=== PATIENT | male | born 1980 | race Caucasian/White ===

== ENCOUNTER 2021-01-22 01:16 | Emergency (ER) | payer BC ==
[~2021-01-22] VITALS: Ht 175 cm; Wt 156.0 kg
[~2021-01-22 01:16] MED LIST: ALPR0.5T7; CYCL10TA9 PO; FENO135C PO; LOSA100T7; LSNP20T PO; OMEP20CA12; SIMV20TA3; TRAM50TA2 PO
[2021-01-22 01:48] LABS: BASOPHILS # (AUTO) 0.1 10^3/uL (0.0-0.1); BASOPHILS % (AUTO) 1 % (0-10); EOSINOPHILS # (AUTO) 0.1 10^3/uL (0.0-0.3); EOSINOPHILS % (AUTO) 1 % (0-10); HEMATOCRIT 46 % (40-54); LYMPHOCYTES # (AUTO) 2.4 10^3/uL (1.0-4.0); LYMPHOCYTES % (AUTO) 21 % (12-44); MEAN CORPUSCULAR HEMOGLOBIN 30 pg (25-34); MEAN CORPUSCULAR HGB CONC 33 g/dL (32-36); MEAN CORPUSCULAR VOLUME 90 fL (80-99); MEAN PLATELET VOLUME 10.3 fL (9.0-12.2); MONOCYTES # (AUTO) 1.2 10^3/uL (0.0-1.0); MONOCYTES % (AUTO) 11 % (0-12); NEUTROPHILS # (AUTO) 7.5 10^3/uL (1.8-7.8); NEUTROPHILS % (AUTO) 66 % (42-75); PLATELET COUNT 367 10^3/uL (130-400); WHITE BLOOD COUNT 11.4 10^3/uL (4.3-11.0)
[2021-01-22 02:01] LABS: ALBUMIN 4.1 GM/DL (3.2-4.5)
[2021-01-22 02:02] LABS: POTASSIUM 3.9 MMOL/L (3.6-5.0)
[2021-01-22 02:03] LABS: CALCIUM 9.5 MG/DL (8.5-10.1)
[2021-01-22 02:06] LABS: BILIRUBIN,TOTAL 0.3 MG/DL (0.1-1.0)
[2021-01-22 02:07] LABS: CREATININE SERUM 1.04 MG/DL (0.60-1.30); INR 0.9 (0.8-1.4); PROTHROMBIN TIME PATIENT 12.3 SEC (12.2-14.7)
[2021-01-22] MEDS ORDERED: ONDANSETRON 4 MG/2 ML (SDV) Z0FRAN IVP ONE (03:00)
[2021-01-22] MEDS ORDERED: LIDOCAINE 2% VISCOUS 15 ML UDC PO ONE (03:00)
[2021-01-22] MEDS ORDERED: ANTACID SUSP 30 ML UDC (MYLANTA) PO ONE (03:00)
--- NOTE | 2021-01-22 05:01 | ED Chest Pain ---
General Chief Complaint: Chest Pain Stated Complaint: CHEST TIGHTNESS,SOB Nursing Triage Note: PT PRESENTS TO THE ED C/O CHEST PRESSURE AND BILATERAL NUMBNESS TO THE BILATERAL UPPER EXTREMITIES THAT WOKE HIM FROM A SLEEP AROUND MIDNIGHT TONIGHT, PT STATES INITIALLY HE THOUGHT IT WAS A PANIC ATTACK, HAS A HX OF THESE. BUT CAME TO THE ED AFTER HIS ARMS CONTINUED TO TINGLE, SPECIFICALLY HIS HANDS. DENIES NV. VERBALIZES SOB Source: patient Exam Limitations: no limitations History of Present Illness Date Seen by Provider: Jan 22, 2021 Time Seen by Provider: 01:21 Initial Comments This 40-year-old gentleman presents to the emergency room with primary complaint of chest pressure that started abruptly while he was sleeping this morning. He states the time of onset was 00:04. He states he woke with a twitching s ensation in his abdomen and then developed numbness and tingling of his extremities and lightheadedness. He then developed an intense tightness in his chest. He reports the pain has subsided significantly and he has a minor tightness that he rates as 5 out of 10 now. He denies any pain with inspiration. He was lying down flat at the time of the episode. He has a history of GERD. Allergies and Home Medications Allergies Coded Allergies: Penicillins (Verified Allergy, 06/20/13) Patient Home Medication List Home Medication List Reviewed: Yes Alprazolam (Alprazolam) 0.5 Mg Tablet, (Reported) Entered as Reported by: CLYDE TIAN on 12/11/141931 Cyclobenzaprine Hcl (Cyclobenzaprine Hcl) 10 Mg Tablet, 1 EACH PO Q8H PRN for SPASMS Prescribed by: ALBERT BENNETT on 12/11/142100 Losartan Potassium (Losartan Potassium) 100 Mg Tablet, (Reported) Entered as Reported by: CLYDE TIAN on 12/11/141931 Omeprazole (Omeprazole) 20 Mg Capsule., (Reported) Entered as Reported by: CLYDE TIAN on 12/11/141931 Simvastatin (Simvastatin) 20 Mg Tablet, (Reported) Entered as Reported by: CLYDE TIAN on 12/11/141931 Tramadol Hcl (Tramadol Hcl) 50 Mg Tablet, 50 MG PO Q4H PRN for PAIN Prescribed by: ALBERT BENNETT on 12/11/142103 Review of Systems Review of Systems Constitutional: no symptoms reported EENTM: No Symptoms Reported Respiratory: No Symptoms Reported Gastrointestinal: See HPI Genitourinary: No Symptoms Reported Musculoskeletal: no symptoms reported Skin: no symptoms reported Psychiatric/Neurological: No Symptoms Reported Endocrine: No Symptoms Reported Hematologic/Lymphatic: No Symptoms Reported Past Azkdcih-Eggckp-Kwjxim Hx Patient Social History Tobacco Use?: No Smokeless Tobacco Frequency: Heavy User Substance use?: No Alcohol Use?: No Immunizations Up To Date Tetanus Booster (TDap): Unknown Influenza Vaccine Up-to-Date: Yes; Up-to-Date Past Medical History Surgery/Hospitalization HX: HTN HX Surgeries: No Respiratory: No Cardiac: Yes High Cholesterol, Hypertension Neurological: No Reproductive Disorders: No Genitourinary: No Gastrointestinal: Yes Gastroesophageal Reflux Musculoskeletal: No Endocrine: No HEENT: No Cancer: No Did You Recieve Any Treatments: No Psychosocial: No Integumentary: No Physical Exam Vital Signs Vital Signs - First Documented 01/22/21 01:22 Temp 36.8 Pulse 116 Resp 20 B/P (MAP) 160/93 (115) Pulse Ox 97 O2 Delivery Room Air Capillary Refill : Less Than 3 Seconds Height, Weight, BMI Height: 5'9" Weight: 270lbs. 6.0oz. 122.274903jd; 50.00 BMI Method:Stated General Appearance: No Apparent Distress, WD/WN, Obese HEENT: PERRL/EOMI, Normal ENT Inspection Neck: Normal Inspection Respiratory: Lungs Clear, Normal Breath Sounds, No Accessory Muscle Use Cardiovascular: Regular Rate, Rhythm, No Edema, No Murmur, Normal Peripheral Pulses Gastrointestinal: Non Tender, Soft; No Distended Extremity: Normal Inspection, Non Tender, No Calf Tenderness, No Pedal Edema Neurologic/Psychiatric: Alert, Oriented x3, No Motor/Sensory Deficits, Normal Mood/Affect Skin: Normal Color, Warm/Dry Progress/Results/Core Measures Results/Orders Lab Results Laboratory Tests Test 01/22/21 01:37 01/22/21 04:00 Range/Units White Blood Count 11.4 H 4.3-11.0 10^3/uL Red Blood Count 5.07 4.30-5.52 10^6/uL Hemoglobin 15.0 13.3-17.7 g/dL Hematocrit 46 40-54 % Mean Corpuscular Volume 90 80-99 fL Mean Corpuscular Hemoglobin 30 25-34 pg Mean Corpuscular Hemoglobin Concent 33 32-36 g/dL Red Cell Distribution Width 13.9 10.0-14.5 % Platelet Count 367 130-400 10^3/uL Mean Platelet Volume 10.3 9.0-12.2 fL Immature Granulocyte % (Auto) 1 % Neutrophils (%) (Auto) 66 42-75 % Lymphocytes (%) (Auto) 21 12-44 % Monocytes (%) (Auto) 11 0-12 % Eosinophils (%) (Auto) 1 0-10 % Basophils (%) (Auto) 1 0-10 % Neutrophils # (Auto) 7.5 1.8-7.8 10^3/uL Lymphocytes # (Auto) 2.4 1.0-4.0 10^3/uL Monocytes # (Auto) 1.2 H 0.0-1.0 10^3/uL Eosinophils # (Auto) 0.1 0.0-0.3 10^3/uL Basophils # (Auto) 0.1 0.0-0.1 10^3/uL Immature Granulocyte # (Auto) 0.1 0.0-0.1 10^3/uL Prothrombin Time 12.3 12.2-14.7 SEC INR Comment 0.9 0.8-1.4 Activated Partial Thromboplast Time 31 24-35 SEC Sodium Level 141 135-145 MMOL/L Potassium Level 3.9 3.6-5.0 MMOL/L Chloride Level 108 H 98-107 MMOL/L Carbon Dioxide Level 22 21-32 MMOL/L Anion Gap 11 5-14 MMOL/L Blood Urea Nitrogen 25 H 7-18 MG/DL Creatinine 1.04 0.60-1.30 MG/DL Estimat Glomerular Filtration Rate 80 BUN/Creatinine Ratio 24 Glucose Level 116 H 70-105 MG/DL Calcium Level 9.5 8.5-10.1 MG/DL Corrected Calcium 9.4 8.5-10.1 MG/DL Magnesium Level 2.0 1.6-2.4 MG/DL Total Bilirubin 0.3 0.1-1.0 MG/DL Aspartate Amino Transf (AST/SGOT) 24 5-34 U/L Alanine Aminotransferase (ALT/SGPT) 54 0-55 U/L Alkaline Phosphatase 109 40-136 U/L Myoglobin 44.8 10.0-92.0 NG/ML Troponin I < 0.028 < 0.028 <0.028 NG/ML C-Reactive Protein High Sensitivity 0.85 H 0.00-0.50 MG/DL Total Protein 7.0 6.4-8.2 GM/DL Albumin 4.1 3.2-4.5 GM/DL My Orders Orders - CHLOE BURGOS MD Cbc With Automated Diff (01/22/21:21) Magnesium (01/22/21:21) Chest 1 View, Ap/Pa Only (01/22/21 01:21) Ekg Tracing (01/22/21:21) Comprehensive Metabolic Panel (01/22/21:21) Myoglobin Serum (01/22/21:21) Protime With Inr (01/22/21:) Partial Thromboplastin Time (01/22/21:21) O2 (01/22/21:21) Monitor-Rhythm Ecg Trace Only (01/22/21:21) Ed Iv/Invasive Line Start (01/22/21:21) Troponin I (01/22/21 01:21) Hs C Reactive Protein (01/22/21 01:21) Ondansetron Injection (Zofran Injectio (01/22/21 03:00) Lidocaine 2% Viscous 15 Ml (Xylocaine Vi (01/22/21 03:00) Antacid Suspension (Mylanta Suspension (01/22/21 03:00) Troponin I (01/22/21 04:20) Medications Given in ED Current Medications Medications Dose Ordered Sig/Sb Route Start Time Stop Time Status Last Admin Dose Admin Al Hydrox/Mg Hydrox/Simethicone 30 ml ONCE ONCE PO 01/22/21 03:00 01/22/21 03:01 DC 01/22/21 03:27 30 ML Lidocaine HCl 15 ml ONCE ONCE PO 01/22/21 03:00 01/22/21 03:01 DC 01/22/21 03:27 15 ML Ondansetron HCl 4 mg ONCE ONCE IVP 01/22/21 03:00 01/22/21 03:01 DC 01/22/21 03:04 4 MG Vital Signs/I&O 01/22/21 01/22/21 01:22 05:18 Temp 36.8 36.8 Pulse 116 94 Resp 20 20 B/P (MAP) 160/93 (115) 170/94 Pulse Ox 97 96 O2 Delivery Room Air Room Air Blood Pressure Mean: 115 Initial ECG Impression Date: Jan 22, 2021 Initial ECG Impression Time: 01:26 Initial ECG Rate: 106 Initial ECG Rhythm: S.Tach Comment Sinus tachycardia with no ST elevation or depression. No abnormal intervals or axis deviation. Diagnostic Imaging Diagonstic Imaging: Xray Plain Films/CT/US/NM/MRI: chest Comments Chest x-ray viewed by me. Report not yet available. No acute abnormalities appreciated. Departure Impression Primary Impression: Atypical chest pain Disposition: HOME, SELF-CARE Condition: Improved Departure-Patient Inst. Decision time for Depature: 04:59 Referrals: IRENE MCNAMARA (PCP/Family) Primary Care Physician Patient Instructions: Chest Pain, Adult ED, Acid Reflux and GERD in Adults (DC) Add. Discharge Instructions: Follow-up with your primary care provider soon as possible. Please call later today to schedule an appointment. Your chest pain may have been caused by acid reflux. I recommend that you take an antacid medication such as Pepcid (famotidine) or omeprazole (Prilosec) 20 mg twice daily for the next month. These antacid medications can be purchased [id number]. Also avoid the following: Eating large meals, eating close to bedtime, caffeine, carbonation, chocolate, citrus fruits and juices, tomato products, mints, alcohol, tobacco, spicy foods, fatty or greasy foods, NSAID medications such as ibuprofen or naproxen, or anything else you know irritates your stomach. Elevating your head when you lay down also helps reduce acid reflux. Weight loss can also reduce pressure on your stomach and reduce reflux symptoms. Call with questions or concerns. Return to the ER if you have worsening symptoms. All discharge instructions reviewed with patient and/or family. Voiced understanding. CHLOE BURGOS MD Jan 22, 2021 05:01
[2021-01-22 05:18] VITALS: BP 170/94
--- NOTE | 2021-01-22 07:56 | Diagnostic Imaging Report ---
INDICATION: Chest pain. EXAMINATION: Chest 01/22/2021. COMPARISON: 06/20/2013 FINDINGS: The cardiomediastinal silhouette is unremarkable. The pulmonary vasculature is within normal limits. The lungs and pleural spaces are clear. IMPRESSION: No evidence of an acute cardiopulmonary process. Dictated by: Dictated on workstation # [id number]
== END 2021-01-22 05:30 | disposition home or self-care (01) ==
LOC: EDUNIT# 01:16 → ER 01:20
DX: R07.89 Other chest pain (principal); I10 Essential (primary) hypertension; E78.00 Pure hypercholesterolemia, unspecified; E66.9 Obesity, unspecified; K21.9 Gastro-esophageal reflux disease without esophagitis; Z68.43 Body mass index [BMI] 50.0-59.9, adult; Z79.899 Other long term (current) drug therapy
CPT/HCPCS: 36415; 71045; 80053; 83735; 83874; 84484; 85025; 85610; 85730; 86141; 93005; 93041

== ENCOUNTER → 2021-07-21 | Outpatient (CLI) | payer BC ==
[2021-07-21 10:00] LABS: BILIRUBIN,TOTAL 0.4 MG/DL (0.1-1.0); CALCIUM 9.2 MG/DL (8.5-10.1); CREATININE SERUM 0.91 MG/DL (0.60-1.30); POTASSIUM 4.2 MMOL/L (3.6-5.0)
== END ==
LOC: LAB 09:19
PROVIDERS: ATTEND Nurse Practitioner
DX: I10 Essential (primary) hypertension (principal); E78.2 Mixed hyperlipidemia; F41.1 Generalized anxiety disorder
CPT/HCPCS: 36415; 80053; 80061